=== PATIENT | male | born 1960 | race Two or more races ===

== ENCOUNTER 2022-10-20 08:07 | Emergency (ER) | payer BC ==
[~2022-10-20] VITALS: Ht 177.8 cm; Wt 109.1 kg
[2022-10-20 08:15] VITALS: TEMP 99.1
[2022-10-20] MEDS ORDERED: ACET-3385 PO (08:15)
[2022-10-20 08:17] VITALS: BP 146/88; PULSE 96; RESP 18
[2022-10-20 08:38] LABS: BASOPHILS % (AUTO) 0.4 % (0.0-2.0); EOSINOPHILS % (AUTO) 5.5 % (1.0-6.0); HEMATOCRIT 42.9 % (41-53); HEMOGLOBIN 14.3 g/dL (13.5-17.5); LYMPHOCYTES # (AUTO) 1.4 K/uL (1.0-4.8); LYMPHOCYTES % (AUTO) 11.1 % (22.0-44.0); MEAN CORPUSCULAR HEMOGLOBIN 30.7 pg (26.0-34.0); MEAN CORPUSCULAR HGB CONC 33.4 G/dL (31.0-37.0); MEAN CORPUSCULAR VOLUME 92 fL (80-100); MONOCYTES # (AUTO) 0.7 K/uL (0.1-1.0); MONOCYTES % (AUTO) 5.2 % (2.0-9.0); NEUTROPHILS # (AUTO) 10.1 K/uL (1.8-7.7); NEUTROPHILS % (AUTO) 77.8 % (40.0-70.0); PLATELET COUNT (AUTO) 159 K/uL (150-450); RED BLOOD CELL COUNT(AUTO) 4.67 MIL/uL (4.50-5.90)
== END 2022-10-20 08:53 | disposition home or self-care (01) ==
LOC: EMS 08:09
DX: R04.0 Epistaxis (principal)
CPT/HCPCS: 85025; 99283